=== PATIENT | female | born 1930 | race Caucasian/White ===

== ENCOUNTER 2019-02-17 09:33 | Day surgery (SDC) | payer MEDICARE, BC ==
[2019-02-17] MEDS ORDERED: Lactated Ringers 1,000 ML IV SCH (10:15)
[2019-02-17] MEDS ORDERED: Propofol 200 MG/20 ML SDV ONE (11:07)
[2019-02-17] MEDS ORDERED: fentaNYL 100 MCG/2 ML SDV ONE (11:07)
[2019-02-17 13:21] VITALS: BP 125/68
--- NOTE | 2019-02-17 14:38 | OR ---
DATE OF PROCEDURE: 02/17/2019 PREOPERATIVE DIAGNOSES: History of colon cancer, history of adenomatous polyps. POSTOPERATIVE DIAGNOSES: Diverticulosis, history of colon cancer, history of adenomatous polyps, sessile polyp near anastomosis in the transverse colon. PROCEDURE: Colonoscopy to the cecum with biopsy and then snare cautery polypectomy of sessile polyp near the anastomosis in the transverse colon. ANESTHESIA: IV anesthesia with monitored anesthesia care. INDICATION: This 88-year-old white female almost 4 years ago underwent a colonoscopy with finding of a sessile polyp. She has a history of colon cancer treated with a right hemicolectomy. She has done well. The sessile polyp was noted to be adjacent to the anastomosis in the transverse colon. Followup colonoscopy almost a year later was unremarkable. It is now 3 years since that and she is here for another colonoscopy. I counseled her for the procedure including risks and alternatives, and she gave her informed consent to proceed. DESCRIPTION OF PROCEDURE: The patient was placed in the left lateral decubitus position. IV anesthesia was administered by the Anesthesia Service. Time-out was held. A rectal exam was performed which was unremarkable. The flexible video Olympus colonoscope was introduced through her anus, up her rectum, and out her colon all the way to the anastomosis. En route, we saw multiple left-sided diverticula. There was no bleeding or inflammation associated with them. 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 This was initially biopsied and then removed with the snare. This involved placing a snare down around its base, elevated it up away from the bowel wall applying, and electrocautery as the polyp was amputated. It was aspirated up through the scope as fragments and captured in a polyp trap. The scope was then slowly withdrawn examining the mucosa throughout. No other mucosal abnormalities were noted other than previously mentioned. The scope was retroflexed in the rectum with the distal rectum appearing unremarkable. The scope was straightened and removed. She tolerated the procedure well. Jim Payton MD /[id number] MTDD
== END 2019-02-17 13:40 | disposition home or self-care (01) ==
LOC: JP.SDS 09:33
PROVIDERS: ATTEND Surgery
DX: Z12.11 Encounter for screening for malignant neoplasm of colon (principal); D12.3 Benign neoplasm of transverse colon; K57.30 Diverticulosis of large intestine without perforation or abscess without bleeding; K21.9 Gastro-esophageal reflux disease without esophagitis; E11.22 Type 2 diabetes mellitus with diabetic chronic kidney disease; N18.3 Chronic kidney disease, stage 3 (moderate); Z90.49 Acquired absence of other specified parts of digestive tract; Z86.010 Personal history of colon polyps; Z85.038 Personal history of other malignant neoplasm of large intestine
CPT/HCPCS: 45385; J2704; J3010; J7120; 88305